=== PATIENT | female | born 1960 | race Caucasian/White ===

== ENCOUNTER 2020-11-26 10:45 | Inpatient (IN) | payer MEDICARE ==
[2020-11-26 13:28] LABS: HEMOGLOBIN 10.3 gm/dl (12.3-15.3); RED BLOOD COUNT 3.47 M/UL (4.00-5.10); WHITE BLOOD COUNT 9.4 K/UL (4.5-11.0)
[2020-11-26] MEDS ORDERED: LIPITOR20 MG PO (16:30)
[2020-11-26] MEDS ORDERED: COREG6.25 MG PO (16:30)
[2020-11-26] MEDS ORDERED: SYNTHROID50 MCG PO (16:31)
[2020-11-26] MEDS ORDERED: NOVOLOG FL100 UNIT/1 INJ (16:32)
[2020-11-26] MEDS ORDERED: PROTONIX40 MG PO (16:32)
[2020-11-26] MEDS ORDERED: LEVEMIR FL100 UNIT/1 SC (16:33)
[2020-11-26] MEDS ORDERED: ZOLOFT100 MG PO (16:33)
[2020-11-26] MEDS ORDERED: PHENERGAN 25 MG25 M1 PO (16:34)
[2020-11-26] MEDS ORDERED: COZAAR25 MG PO (16:35)
[2020-11-26] MEDS ORDERED: CLARITIN10 MG PO (16:35)
[2020-11-26] MEDS ORDERED: NEURONTIN300 MG PO (16:35)
[2020-11-26] MEDS ORDERED: NITROSTAT0.4 MG SL (16:37)
[2020-11-28 05:54] LABS: HEMOGLOBIN 9.6 gm/dl (12.3-15.3); RED BLOOD COUNT 3.36 M/UL (4.00-5.10)
[2020-11-28 11:14] LABS: HBSAG SCREEN Negative (Negative); HEP A AB, IGM Negative (Negative); HEP B CORE AB, IGM Negative (Negative); HEP C VIRUS AB 0.2 (0.0-0.9)
[2020-11-28] MEDS ORDERED: CARVEDILOL12.5 MG PO (15:07)
[2020-11-28] MEDS ORDERED: ASPIRIN EC81 MG PO (15:07)
[2020-11-28] MEDS ORDERED: VANCOMYCIN750 MG/151 IV (15:07)
[2020-11-28] MEDS ORDERED: CEFUROXIME250 MG PO (15:07)
== END 2020-11-28 18:44 | disposition home health service (06) | DRG 40 ==
LOC: ER1 10:45 → CDU 15:39 → M/S 15:39
PROVIDERS: Internal Medicine Nephrology; Physician Assistant; ADMIT Internal Medicine Infectious Disease
PROC: 5A1D70Z Performance of Urinary Filtration, Intermittent, Less than 6 Hours Per Day (ICD-10-PCS; principal; 2020-11-26)
PROC: 0Y6R0Z0 Detachment at Right 2nd Toe, Complete, Open Approach (ICD-10-PCS; 2020-11-27)
PROC: 5A1D70Z Performance of Urinary Filtration, Intermittent, Less than 6 Hours Per Day (ICD-10-PCS; 2020-11-28)
DX: E11.42 Type 2 diabetes mellitus with diabetic polyneuropathy (principal); N18.6 End stage renal disease; E11.52 Type 2 diabetes mellitus with diabetic peripheral angiopathy with gangrene; M86.9 Osteomyelitis, unspecified; N30.00 Acute cystitis without hematuria; I13.2 Hypertensive heart and chronic kidney disease with heart failure and with stage 5 chronic kidney disease, or end stage renal disease; L97.419 Non-pressure chronic ulcer of right heel and midfoot with unspecified severity; I96 Gangrene, not elsewhere classified; Z20.822 Contact with and (suspected) exposure to COVID-19; E11.69 Type 2 diabetes mellitus with other specified complication; Z99.2 Dependence on renal dialysis; I16.0 Hypertensive urgency; E78.5 Hyperlipidemia, unspecified; I25.10 Atherosclerotic heart disease of native coronary artery without angina pectoris; Z95.1 Presence of aortocoronary bypass graft; H54.61 Unqualified visual loss, right eye, normal vision left eye; E03.9 Hypothyroidism, unspecified; E11.22 Type 2 diabetes mellitus with diabetic chronic kidney disease; I50.9 Heart failure, unspecified; Z89.411 Acquired absence of right great toe; Z89.422 Acquired absence of other left toe(s); Z88.0 Allergy status to penicillin; Z79.4 Long term (current) use of insulin; Z79.899 Other long term (current) drug therapy; E11.621 Type 2 diabetes mellitus with foot ulcer; B35.1 Tinea unguium; E11.628 Type 2 diabetes mellitus with other skin complications; L03.031 Cellulitis of right toe; E87.5 Hyperkalemia; B95.62 Methicillin resistant Staphylococcus aureus infection as the cause of diseases classified elsewhere; B96.20 Unspecified Escherichia coli [E. coli] as the cause of diseases classified elsewhere
CPT/HCPCS: 36415; 71045; 73630; 80053; 80074; 81001; 82962; 83036; 85025; 85652; 86140; 87070; 87077; 87086; 87186; 87205; 90471; 90935; 90937; 96372; 96374; 96375; 99284; C1751; J1335; J1644; J2001; J2405; J2704; J2795; J3370; J7030; J7070; J7120; Q4133; U0002

== ENCOUNTER 2021-11-09 18:38 | Inpatient (IN) | payer OTHER ==
[~2021-11-09] VITALS: Ht 152.4 cm; Wt 105.0 kg
[~2021-11-09 18:38] MED LIST: ASPIRIN EC81 MG PO; CARVEDILOL12.5 MG PO; CEFUROXIME250 MG PO; CLARITIN10 MG PO; COREG6.25 MG PO; COZAAR25 MG PO; LIPITOR20 MG PO; NEURONTIN300 MG PO; NITROSTAT0.4 MG SL; NOVOLOG FL100 UNIT/1 INJ; PHENERGAN 25 MG25 M1 PO; PROTONIX40 MG PO; SYNTHROID50 MCG PO; VANCOMYCIN750 MG/151 IV; ZOLOFT100 MG PO
[2021-11-09 20:13] LABS: RED BLOOD COUNT 3.69 M/UL (4.00-5.10); WHITE BLOOD COUNT 11.2 K/UL (4.5-11.0)
[2021-11-10 04:27] LABS: HEMOGLOBIN 11.1 gm/dl (12.3-15.3); RED BLOOD COUNT 3.72 M/UL (4.00-5.10); WHITE BLOOD COUNT 11.9 K/UL (4.5-11.0)
[2021-11-10] MEDS ORDERED: FLUCONAZOLE200 MG PO (13:07)
[2021-11-10] MEDS ORDERED: NYSTATIN60 GM TOP (13:08)
[2021-11-10] MEDS ORDERED: MOBIC7.5 MG PO (13:09)
[2021-11-10] MEDS ORDERED: ROPINIROLE HCL1 MG PO (13:10)
[2021-11-10] MEDS ORDERED: CALCIUM ACETAT667 M1 PO (13:11)
[2021-11-10] MEDS ORDERED: LASIX80 MG PO (13:12)
[2021-11-10] MEDS ORDERED: LEVEMIR FL100 UNIT/1 SC (16:33)
[2021-11-12 03:53] LABS: HEMOGLOBIN 11.1 gm/dl (12.3-15.3); RED BLOOD COUNT 3.75 M/UL (4.00-5.10); WHITE BLOOD COUNT 11.9 K/UL (4.5-11.0)
[2021-11-13 07:23] LABS: HEMOGLOBIN 11.3 gm/dl (12.3-15.3); RED BLOOD COUNT 3.84 M/UL (4.00-5.10)
[2021-11-13 07:36] LABS: WHITE BLOOD COUNT 14.9 K/UL (4.5-11.0)
[2021-11-14 05:32] LABS: HEMOGLOBIN 12.4 gm/dl (12.3-15.3); RED BLOOD COUNT 4.26 M/UL (4.00-5.10); WHITE BLOOD COUNT 15.6 K/UL (4.5-11.0)
[2021-11-14 14:35] LABS: HEMOGLOBIN 11.4 gm/dl (12.3-15.3)
[2021-11-14 20:07] LABS: HEMOGLOBIN 12.4 gm/dl (12.3-15.3)
[2021-11-15 05:41] LABS: RED BLOOD COUNT 4.06 M/UL (4.00-5.10)
[2021-11-15 06:09] LABS: HBSAG SCREEN Negative (Negative); HEP A AB, IGM Negative (Negative); HEP B CORE AB, IGM Negative (Negative); HEP C VIRUS AB 0.1 (0.0-0.9)
[2021-11-15 12:22] LABS: HEMOGLOBIN 11.2 gm/dl (12.3-15.3)
[2021-11-16 04:32] LABS: HEMOGLOBIN 11.3 gm/dl (12.3-15.3); RED BLOOD COUNT 3.89 M/UL (4.00-5.10)
[2021-11-16 04:59] LABS: WHITE BLOOD COUNT 33.9 K/UL (4.5-11.0)
== END 2021-11-16 11:20 | disposition expired | DRG 871 ==
LOC: ER1 18:38 → CDU 22:43 → M/S 22:43 → PROG CARE 11-11 15:35 → CCU 11-13 16:44
PROVIDERS: Internal Medicine; Internal Medicine Nephrology; Physician Assistant; ADMIT Internal Medicine
PROC: 3E1M39Z Irrigation of Peritoneal Cavity using Dialysate, Percutaneous Approach (ICD-10-PCS; 2021-11-11)
PROC: 3E033XZ Introduction of Vasopressor into Peripheral Vein, Percutaneous Approach (ICD-10-PCS; principal; 2021-11-12)
PROC: 02HV33Z Insertion of Infusion Device into Superior Vena Cava, Percutaneous Approach (ICD-10-PCS; 2021-11-14)
PROC: 03HY32Z Insertion of Monitoring Device into Upper Artery, Percutaneous Approach (ICD-10-PCS; 2021-11-14)
PROC: 4A133B1 Monitoring of Arterial Pressure, Peripheral, Percutaneous Approach (ICD-10-PCS; 2021-11-14)
PROC: 4A133J1 Monitoring of Arterial Pulse, Peripheral, Percutaneous Approach (ICD-10-PCS; 2021-11-14)
DX: A41.9 Sepsis, unspecified organism (principal); R65.21 Severe sepsis with septic shock; N18.6 End stage renal disease; G92.8 Other toxic encephalopathy; I81 Portal vein thrombosis; I21.4 Non-ST elevation (NSTEMI) myocardial infarction; K72.00 Acute and subacute hepatic failure without coma; K65.9 Peritonitis, unspecified; J80 Acute respiratory distress syndrome; I50.33 Acute on chronic diastolic (congestive) heart failure; L03.311 Cellulitis of abdominal wall; I13.2 Hypertensive heart and chronic kidney disease with heart failure and with stage 5 chronic kidney disease, or end stage renal disease; E87.2 Acidosis; B17.9 Acute viral hepatitis, unspecified; E11.52 Type 2 diabetes mellitus with diabetic peripheral angiopathy with gangrene; I96 Gangrene, not elsewhere classified; I45.81 Long QT syndrome; K42.9 Umbilical hernia without obstruction or gangrene; Z66 Do not resuscitate; E11.22 Type 2 diabetes mellitus with diabetic chronic kidney disease; R53.81 Other malaise; H54.7 Unspecified visual loss; Z20.822 Contact with and (suspected) exposure to COVID-19; I25.10 Atherosclerotic heart disease of native coronary artery without angina pectoris; E11.40 Type 2 diabetes mellitus with diabetic neuropathy, unspecified; E87.6 Hypokalemia; E83.59 Other disorders of calcium metabolism; E03.9 Hypothyroidism, unspecified; E11.649 Type 2 diabetes mellitus with hypoglycemia without coma; M79.89 Other specified soft tissue disorders; E83.39 Other disorders of phosphorus metabolism; G72.89 Other specified myopathies; K59.09 Other constipation; E11.621 Type 2 diabetes mellitus with foot ulcer; G35 Multiple sclerosis; Z99.2 Dependence on renal dialysis; Z74.01 Bed confinement status; Z95.1 Presence of aortocoronary bypass graft; Z90.49 Acquired absence of other specified parts of digestive tract; Z89.411 Acquired absence of right great toe; Z88.0 Allergy status to penicillin; Z82.49 Family history of ischemic heart disease and other diseases of the circulatory system; Z51.5 Encounter for palliative care
CPT/HCPCS: ECHO; 36415; 36600; 70450; 71045; 73522; 73700; 74018; 76705; 80048; 80053; 80074; 80202; 82009; 82140; 82550; 82553; 82803; 82962; 83605; 83615; 83735; 83874; 83880; 83970; 84100; 84439; 84443; 84484; 85014; 85018; 85025; 85027; 85610; 85730; 86140; 87040; 87070; 87205; 90937; 90945; 90947; 93005; 93306; 93971; 96365; 96366; 96375; 96376; 97162; 97164; 97166; 97530; 97535; 99285; C9113; J0692; J1450; J1644; J1720; J2060; J2185; J2248; J2270; J2310; J2370; J3370; J7030; J7040; J7050; J7070; P9047; U0002